=== PATIENT | female | born 1985 | race Caucasian/White ===

== ENCOUNTER 2018-04-29 21:22 | Emergency (ER) | payer OTHER ==
[2018-04-29 21:39] VITALS: BP 114/75; PULSE 105; RESP 18; TEMP 98.3
[2018-04-29] MEDS ORDERED: MORPHINE SULFATE 4 MG/ML SYRINGE IV STA (22:22)
[2018-04-29] MEDS ORDERED: methylPREDNISolone SOD SUCCI 125 MG/2 ML VIAL IV STA (22:22)
--- NOTE | 2018-04-29 22:56 | ED ---
Back Pain HPI - General Chief Complaint: Back Pain/Injury Stated Complaint: numbness/weakness Rt leg Time Seen by Provider: 04/29/18 21:40 Source: patient Limitations: no limitations - History of Present Illness Initial Comments: This patient is 32-year-old woman who states she has history of herniated disc. She complains of having worsening back pain radiating to the leg and now tonight leading to urinary incontinence. She states that she phoned her back specialist and was told that she needs to have emergent MRI. The patient states that she had been admitted at the [facility] from Monday, being discharged on Monday for the same problem. She is currently taking gabapentin, Percocet, steroid as treatment. Patient denies fever or chills. She states that her leg does feel weak and numb. She does also complain of loss of sensation to what she refers to as the saddle area. No fever or chills. MD Complaint: back pain -: hour(s) Similar Symptoms Previously: Yes Place: home Radiation: buttocks, other (Leg) Severity: severe Quality: burning, aching Consistency: constant Improves With: none Worsens With: movement Associated Symptoms: incontinence - Related Data Home Medications Medication Instructions Recorded Confirmed Cyclobenzaprine [Flexeril] 10 mg PO TID 04/29/18 04/29/18 Dexamethasone [Hexadrol] See Taper PO DIRECTED 04/29/18 04/29/18 Gabapentin [Neurontin] 200 mg PO TID 04/29/18 04/29/18 Ranitidine HCl [Zantac] 150 mg PO BID 04/29/18 04/29/18 oxyCODONE HCL [Roxicodone] 5 mg PO Q4H PRN 04/29/18 04/29/18 Allergies Allergy/AdvReac Type Severity Reaction Status Date / Time doxycycline Allergy Rash/Hives Verified 04/29/18 21:51 latex Allergy Rash/Hives Verified 04/29/18 21:51 shellfish derived [Shellfish] Allergy Anaphylaxis Verified 04/29/18 21:51 Review of Systems ROS Statement: Those systems with pertinent positive or pertinent negative responses have been documented in the HPI. ROS Other: All systems not noted in ROS Statement are negative. Constitutional: Denies: fever, chills, weakness Respiratory: Denies: cough, dyspnea Cardiovascular: Denies: chest pain, edema Gastrointestinal: Denies: abdominal pain, nausea, vomiting, diarrhea, constipation Genitourinary: Reports: other (Complains of loss of bladder control). Denies: dysuria, frequency, hematuria Musculoskeletal: Reports: as per HPI, back pain Skin: Denies: rash Neurological: Reports: weakness, numbness. Denies: headache Hematological/Lymphatic: Denies: easy bleeding Past Medical History Past Medical History: GERD/Reflux Additional Past Medical History / Comment(s): chronic back pain (herniated discs ), gastritis History of Any Multi-Drug Resistant Organisms: None Reported Past Surgical History: Cholecystectomy Past Psychological History: Anxiety Smoking Status: Current every day smoker Past Alcohol Use History: None Reported Past Drug Use History: None Reported General Exam Limitations: no limitations General appearance: alert, in no apparent distress Head exam: Present: atraumatic, normocephalic Eye exam: Present: normal appearance Neck exam: Present: normal inspection, full ROM Respiratory exam: Present: normal lung sounds bilaterally. Absent: respiratory distress, wheezes, rales, rhonchi, stridor Cardiovascular Exam: Present: regular rate, normal rhythm, normal heart sounds. Absent: systolic murmur, diastolic murmur, rubs, gallop GI/Abdominal exam: Present: soft. Absent: distended, tenderness, guarding, rebound, mass Extremities exam: Present: normal inspection, normal capillary refill. Absent: pedal edema, calf tenderness Back exam: Present: other (Remote surgical scar.). Absent: CVA tenderness (R), CVA tenderness (L), paraspinal tenderness, vertebral tenderness Neurological exam: Present: alert, oriented X3, motor sensory deficit (Patient complains of decreased sensory to light touch left leg. There is subjective weakness of the left leg that appears effort dependent due to pain.), reflexes normal Skin exam: Present: warm, dry, intact, normal color. Absent: rash Course Vital Signs 04/29/18 21:36 Temperature 98.3 F Pulse Rate 105 H Respiratory 18 Rate Blood Pressure 114/75 O2 Sat by Pulse 98 Oximetry Disposition Clinical Impression: Sciatica, Back pain Disposition: OTHER INSTITUTION NOT DEFINED Condition: Fair Is patient prescribed a controlled substance at d/c from ED?: No Referrals: Nonstaff,Physician [Primary Care Provider] - 1-2 days - Out of Hospital Transfer - Req. Specs Out of Hospital Transfer - Requested Specifics: Other Emergency Center
== END 2018-04-30 00:38 | disposition other institution (70) ==
LOC: EC 21:22
DX: M54.30 Sciatica, unspecified side (principal); M54.9 Dorsalgia, unspecified; G89.29 Other chronic pain; K21.9 Gastro-esophageal reflux disease without esophagitis; F41.9 Anxiety disorder, unspecified; F17.200 Nicotine dependence, unspecified, uncomplicated; Z79.899 Other long term (current) drug therapy; Z88.1 Allergy status to other antibiotic agents; Z91.013 Allergy to seafood; Z91.040 Latex allergy status; Z53.29 Procedure and treatment not carried out because of patient's decision for other reasons
CPT/HCPCS: 99284; 96374; J2270